=== PATIENT | female | born 2000 | race Hispanic/Latino ===

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

== ENCOUNTER 2021-09-21 14:09 | Emergency (ER) | payer BC, SELFPAY ==
--- OUTSIDE RECORDS SUMMARY | 2021-09-21 14:11 | XMS REPORT | Continuity of Care Document ---
:2000 Author Organization [facility] t Address [address] [place] [address] Dr. Elizabeth [address] [place] [id number] Care Team Providers Name Role Phone Unavailable Unavailable Unavailable Problems This patient has no known problems. Allergies, Adverse Reactions, Alerts This patient has no known allergies or adverse reactions. Medications This patient has no known medications. Procedures This patient has no known procedures. Results This patient has no known results.
[2021-09-21 14:41] LABS: Urine Blood Trace-intact (Negative); Urine Glucose Negative (Negative); Urine Protein Negative (Negative); Urine Specific Gravity >=1.030 (1.005-1.030)
[2021-09-21 14:49] LABS: Absolute Lymphocytes (CBC) 1.9 K/uL (0.7-4.9); Hematocrit 41.6 % (36.0-45.0); Lymphocytes % 28.3 % (15.3-44.8); MPV 8.6 fL (7.6-11.3); RBC Red Blood Cell Count 4.75 M/uL (3.86-4.86)
[2021-09-21 15:04] LABS: Albumin 3.9 g/dL (3.4-5.0); Bilirubin Total 0.5 mg/dL (0.2-1.0); Potassium 3.8 mmol/L (3.5-5.1); Protein, Total 8.2 g/dL (6.4-8.2)
--- NOTE | 2021-09-21 15:07 | RAD REPORT ---
EXAM DESCRIPTION: US - Abdomen Exam Limited - 09/21/2021 3:00 pm CLINICAL HISTORY: abdominal pain COMPARISON: No comparisons FINDINGS: No gallstones, measurable quantity of sludge or other significant findings within the gall bladder lumen. There is no wall thickening or pericholecystic fluid. No common duct stone or biliary tree dilatation identified. IMPRESSION: Normal gallbladder and biliary tree ultrasound.
[2021-09-21] MEDS ORDERED: LIDOCAINE VISCOUS 2% SOLN 15 ML UDC ONE (16:28)
[2021-09-21] MEDS ORDERED: MAGNES/ALUMIN/SIMET 30ML UCUP ONE (16:28)
--- NOTE | 2021-09-21 17:10 | EDPHYS ---
Physician Documentation [facility] Name: Claritza Zarate Age: 21 yrs Sex: Female : 2000 Arrival Date: 09/21/2021 Time: 14:12 Bed 11 Private MD: ED Physician Dada Vleasquez HPI: 09/21 14:22 This 21 yrs old Female presents to ER via Ambulatory with complaints of jmm Abdominal Pain, Weakness. 14:22 The patient presents with abdominal pain. Onset: The symptoms/episode began/occurred jmm gradually, 1 day(s) ago. The symptoms do not radiate. Associated signs and symptoms: Pertinent positives: nausea and vomiting. The symptoms are described as achy. 1-year-old female with no chronic medical conditions presents emerged department with complaints of epigastric abdominal pain beginning last night with some nausea and vomiting. Patient denies diarrhea. Denies infectious exposure, denies recent travel, denies recent antibiotic use. Patient denies any lower abdominal pain.. 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 - Social history:: Smoking status: Patient denies any tobacco usage or history of. ROS: 14:22 Constitutional: Negative for fever, chills, and weight loss, Cardiovascular: Negative jmm for chest pain, palpitations, and edema, Respiratory: Negative for shortness of breath, cough, wheezing, and pleuritic chest pain. 14:22 Abdomen/GI: Positive for abdominal pain. 14:22 All other systems are negative. Exam: 14:22 Constitutional: This is a well developed, well nourished patient who is awake, alert, jmm and in no acute distress. Head/Face: atraumatic. Eyes: EOMI, no conjunctival erythema appreciated ENT: Moist Mucus Membranes Neck: Trachea midline, Supple Chest/axilla: Normal chest wall appearance and motion. Cardiovascular: Regular rate and rhythm. No edema appreciated Respiratory: Normal respirations, no respiratory distress appreciated Abdomen/GI: Non distended, soft Back: Normal ROM Skin: General appearance color normal 14:22 Musculoskeletal/extremity: ROM: intact in all extremities. 14:22 Skin: Appearance: Color: normal in color. 14:22 Neuro: Orientation: is normal, Mentation: is normal, Memory: is normal. 14:22 Psych: Behavior/mood is pleasant, cooperative. Vital Signs: 14:16 BP 121 / 81; Pulse 106; Resp 17 S; Temp 98.4(TE); Pulse Ox 100% on R/A; Weight 61.23 kg jd3 (R); Height 4 ft. 11 in. (149.86 cm) (R); Pain 7/10; 14:16 Body Mass Index 27.27 (61.23 kg, 149.86 cm) jd3 MDM: 14:46 Patient medically screened. [facility] 17:07 Data reviewed: vital signs, nurses notes. [facility] 17:07 Counseling: I had a detailed discussion with the patient and/or guardian regarding: the [facility] historical points, exam findings, and any diagnostic results supporting the discharge/admit diagnosis, lab results, radiology results, the need for outpatient follow up, to return to the emergency department if symptoms worsen or persist or if there are any questions or concerns that arise at home. ED course: Patient states feeling much better after the GI cocktail. Patient has no lower abdominal pain and I do not currently suspect acute appendicitis. Patient advised follow GI for further evaluation otherwise given strict return precautions. Patient understood and agrees plan of care.. 09/21 14:22 Order name: CBC with Diff; Complete Time: 14:50 09/21 14:22 Order name: CMP; Complete Time: 15:06 09/21 14:22 Order name: Lipase; Complete Time: 15:06 09/21 14:41 Order name: Urine Dipstick-Ancillary; Complete Time: 14:44 EDTX 09/21 14:44 Order name: US Abdomen Limited; Complete Time: 15:16 [facility] 09/21 14:22 Order name: IV Saline Lock; Complete Time: 14:38 09/21 14:22 Order name: Labs collected and sent; Complete Time: 14:38 09/21 14:22 Order name: Urine Dipstick-Ancillary (obtain specimen); Complete Time: 16:03 09/21 14:22 Order name: Urine Test (obtain specimen); Complete Time: 16:03 iw Administered Medications: 16:28 Drug: GI Cocktail without - (Maalox Suspension 30 ml, Lidocaine Liquid 2 % 15 ww ml) Route: PO; Disposition: 18:23 Co-signature as Attending Physician, Dada Velasquez DO I was immediately available on-site ms3 in the Emergency Department for consultation in the care of the patient.. Disposition Summary: 09/21/21 17:10 Discharge Ordered Location: Home [facility] Condition: Stable jm Diagnosis - Epigastric pain [facility] Followup: jmm - With: Reyes Cazares MD - When: 2 - 3 days - Reason: Recheck today's complaints, Continuance of care, Re-evaluation by your physician Discharge Instructions: - Discharge Summary Sheet [facility] - Abdominal Pain, Adult [facility] Forms: - Medication Reconciliation Form [facility] - Thank You Letter [facility] - Antibiotic Education [facility] - Prescription Opioid Use [facility] Prescriptions: - Carafate 1 gram Oral Tablet - take 1 tablet by ORAL route 4 times per day take on an empty stomach, beginning jmm on waking and last dose at bedtime; 100 tablet; Refills: 0, Product Selection Permitted - Pepcid 20 mg Oral Tablet - take 1 tablet by ORAL route every 12 hours for 10 days; 20 tablet; Refills: 0, [facility] Product Selection Permitted - dicyclomine 20 mg Oral Tablet - take 1 tablet by ORAL route 4 times per day; 30 tablet; Refills: 0, Product [facility] Selection Permitted Signatures: Dispatcher [employer] EDJohn Bobo PA PA jmm Williams, Irene RN Tristan Arana RN RN Dada Burroughs DO DO ms3 Angela Kendrick RN RN ww
--- NOTE | 2021-09-21 17:10 | ER ---
Nurse's Notes [facility] Name: Claritza Zarate Age: 21 yrs Sex: Female : 2000 Arrival Date: 09/21/2021 Time: 14:12 Bed 11 Private MD: Diagnosis: Epigastric pain Presentation: 09/21 14:14 Chief complaint: Patient states: "last night i had a super sharp pain in my upper jd3 stomach. I felt like i needed to vomit. I had this burning sensation in my upper stomach.". Coronavirus screen: At this time, the client does not indicate any symptoms associated with coronavirus-19. Ebola Screen: No symptoms or risks identified at this time. Initial Sepsis Screen: Does the patient meet any 2 criteria? No. Patient's initial sepsis screen is negative. Does the patient have a suspected source of infection? No. Patient's initial sepsis screen is negative. Risk Assessment: Do you want to hurt yourself or someone else? Patient reports no desire to harm self or others. Onset of symptoms was September 21, 2021. 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 - Social history:: Smoking status: Patient denies any tobacco usage or history of. Screenin:24 Abuse screen: Denies threats or abuse. Denies injuries from another. Nutritional ww screening: No deficits noted. Tuberculosis screening: No symptoms or risk factors identified. Fall Risk None identified. Assessment: 17:24 General: Appears in no apparent distress. Pain: Complains of pain in abdomen. Neuro: ww Level of Consciousness is awake, alert, obeys commands, Oriented to person, place, time, situation, Moves all extremities. Gait is steady, Speech is normal. Cardiovascular: Patient's skin is warm and dry. Respiratory: Airway is patent Respiratory effort is even, unlabored, Respiratory pattern is regular, symmetrical. GI: Abdomen is non-distended, Abd is soft X 4 quads. Derm: Skin is intact, is healthy with good turgor. Vital Signs: 14:16 BP 121 / 81; Pulse 106; Resp 17 S; Temp 98.4(TE); Pulse Ox 100% on R/A; Weight 61.23 kg jd3 (R); Height 4 ft. 11 in. (149.86 cm) (R); Pain 7/10; 14:16 Body Mass Index 27.27 (61.23 kg, 149.86 cm) jd3 ED Course: 14:12 Patient arrived in ED. as 14:12 John Maradiaga PA is PHCP. elly 14:12 Dada Velasquez DO is Attending Physician. m 14:16 Triage completed. jd3 14:17 Arm band placed on. jd3 14:38 CBC with Diff Sent. mb7 14:38 CMP Sent. mb7 14:38 Lipase Sent. mb7 14:38 Inserted saline lock: 20 gauge in left antecubital area, using aseptic technique. Blood mb7 collected. 15:02 US Abdomen Limited In Process Unspecified. EDMS 17:09 Reyes Cazares MD is Referral Physician. [facility] 17:24 Patient has correct armband on for positive identification. Placed in gown. Bed in low ww position. Call light in reach. Side rails up X 1. 17:24 No provider procedures requiring assistance completed. IV discontinued, intact, ww bleeding controlled, No redness/swelling at site. Pressure dressing applied. Administered Medications: 16:28 Drug: GI Cocktail without - (Maalox Suspension 30 ml, Lidocaine Liquid 2 % 15 ww ml) Route: PO; Medication: 17:24 VIS not applicable for this client. ww Outcome: 17:10 Discharge ordered by . elly 17:24 Discharged to home ambulatory. ww 17:24 Condition: stable 17:24 Discharge instructions given to patient, family, Instructed on discharge instructions, follow up and referral plans. Demonstrated understanding of instructions, follow-up care, medications, Prescriptions given X 3. 17:26 Patient left the ED. ww Signatures: Dispatcher [employer] EDMS John Maradiaga PA PA jmm Martinez, Amelia as Davies, Jonathon, RN RN jd3 Radha, Ca mb7 Angela Kendrick, RN RN ww
[2021-09-21 17:37] VITALS: BP 121/81; TEMP 98.4; O2SAT 100
== END 2021-09-21 17:26 | disposition home or self-care (01) ==
LOC: ER 14:09
DX: R10.13 Epigastric pain (principal); R11.2 Nausea with vomiting, unspecified
CPT/HCPCS: 36415; 76705; 80053; 81003; 83690; 85025; 99284

== ENCOUNTER 2024-03-27 05:42 | Emergency (ER) | payer OTHER ==
[2024-03-27 06:39] LABS: Absolute Eosinophils 0.2 K/uL (0-0.5); Absolute Lymphocytes (CBC) 2.8 K/uL (0.7-4.9); Absolute Monocytes 0.6 K/uL (0.1-1.3); Absolute Neutrophil 6.4 K/uL (1.8-8.0); Basophils % 0.4 % (0-1.3); Eosinophils % 1.7 % (0-4.4); Hematocrit 38.5 % (36.0-45.0); Hemoglobin 13.2 g/dL (12.0-15.0); Lymphocytes % 27.7 % (15.3-44.8); MCH 29.4 pg (27.0-35.0); MCHC 34.2 g/dL (32.0-36.0); MCV 85.9 fL (80-100); MPV 8.7 fL (7.6-11.3); Monocytes % 6.4 % (3.3-12.3); Neutrophils % 63.8 % (41.7-73.7); Nucleated Red Blood Cells % 0.1 % (0-0); Platelets 369 thou/uL (152-406); RBC Red Blood Cell Count 4.48 M/uL (3.86-4.86); Red Cell Distribution Width 13.9 % (12.1-15.2)
[2024-03-27 06:46] LABS: Specific Gravity 1.027 (1.005-1.030)
[2024-03-27 06:49] LABS: Specific Gravity 1.027 (1.005-1.030); Urine Bacteria <20 /HPF (<20); Urine Bilirubin NEGATIVE (Negative); Urine Blood Negative (Negative); Urine Clarity Turbid (Clear); Urine Color Yellow (Yellow); Urine Culture Reflex Order NOT NEEDED; Urine Glucose NEGATIVE (Negative); Urine Ketones 2+ (Negative); Urine Microscopic Reflex YN ORDER UMIC; Urine Mucus 1+ /HPF (None Seen); Urine Nitrite NEGATIVE (Negative); Urine Protein TRACE (Negative); Urine RBC <5 /HPF (None Seen); Urine Urobilinogen Normal (Normal); Urine WBC <5 /HPF (<5)
[2024-03-27 06:58] LABS: Albumin 3.9 g/dL (3.4-5.0); Anion Gap 9.6 mEq/L (5.0-15.0); Bilirubin Total 0.6 mg/dL (0.2-1.0); Globulin 4.1 g/dL (2.3-3.5); Potassium 3.6 mEq/L (3.5-5.1)
--- NOTE | 2024-03-27 07:45 | RAD REPORT ---
EXAM: Right upper quadrant ultrasound. CLINICAL HISTORY: Right upper quadrant pain COMPARISON: None. FINDINGS: Gallbladder: Normal. Bile ducts: No intrahepatic or extrahepatic biliary dilatation. Common bile duct measures 4 mm. Limited imaging of the liver shows no concerning finding. IMPRESSION: Unremarkable exam.
--- NOTE | 2024-03-27 07:59 | EDPHYS ---
Physician Documentation [facility] Name: Claritza Zarate Age: 23 yrs Sex: Female : 2000 Arrival Date: 03/27/2024 Time: 05:42 Bed 6 Private MD: ED Physician Son Candelaria HPI: 03/27 07:04 This 23 yrs old Female presents to ER via Ambulatory with complaints of rt Abdominal Pain. 07:04 Patient presents to the ED with right upper quadrant pain with nausea, vomiting, rt diarrhea starting overnight. Patient states the symptoms wax and wane, do seem to be improving but not completely resolved. Has had similar symptoms previously. Denies other acute complaints at this time, symptoms are moderate in severity, no other aggravating alleviating factors.. Historical: - Allergies: 06:15 No Known Allergies; ha1 06:15 No Known Allergies; mt4 - Home Meds: 06:15 None [Active]; mt4 - PMHx: 06:15 None; ha1 - PSHx: 06:15 section; ha1 06:15 section; mt4 - Immunization history:: Adult Immunizations up to date, Adult Immunizations up to date. - Infectious Disease History:: Denies. Denies. - Social history:: Smoking status: Patient denies any tobacco usage or history of. Smoking status: Patient denies any tobacco usage or history of. - Family history:: not pertinent. ROS: 07:04 Constitutional: Negative for fever, chills, and weight loss, Cardiovascular: Negative rt for chest pain, palpitations, and edema, Respiratory: Negative for shortness of breath, cough, wheezing, and pleuritic chest pain, MS/Extremity: Negative for injury and deformity, Skin: Negative for injury, rash, and discoloration, Neuro: Negative for headache, weakness, numbness, tingling, and seizure, 07:04 Abdomen/GI: Positive for abdominal pain, nausea, vomiting, and diarrhea, Exam: 07:04 Constitutional: This is a well developed, well nourished patient who is awake, alert, rt and in no acute distress. Head/Face: Normocephalic, atraumatic. Chest/axilla: Normal chest wall appearance and motion. Nontender with no deformity. No lesions are appreciated. Cardiovascular: Regular rate and rhythm with a normal S1 and S2. No gallops, murmurs, or rubs. Normal PMI, no JVD. No pulse deficits. Respiratory: Lungs have equal breath sounds bilaterally, clear to auscultation and percussion. No rales, rhonchi or wheezes noted. No increased work of breathing, no retractions or nasal flaring. Skin: Warm, dry with normal turgor. Normal color with no rashes, no lesions, and no evidence of cellulitis. MS/ Extremity: Pulses equal, no cyanosis. Neurovascular intact. Full, normal range of motion. Neuro: Awake and alert, GCS 15, oriented to person, place, time, and situation. Cranial nerves II-XII grossly intact. Motor strength 5/5 in all extremities. Sensory grossly intact. Cerebellar exam normal. Normal gait. 07:04 Abdomen/GI: Tenderness to the right upper quadrant with no guarding, rebound, distention, Vital Signs: 05:47 BP 133 / 92; Pulse 95; Resp 18 S; Temp 97.6(T); Pulse Ox 100% on R/A; Weight 72.57 kg; ha1 Height 4 ft. 11 in. ; Pain 8/10; 06:15 BP 111 / 72; Pulse 81; Resp 16; Pulse Ox 99% on R/A; Pain 7/10; mt4 07:12 BP 110 / 69; Pulse 94; Resp 18; Pulse Ox 100% on R/A; ap3 08:15 BP 112 / 62; Pulse 90; Resp 18 S; Pulse Ox 98% on R/A; kc6 05:47 Body Mass Index 32.32 (72.57 kg, 149.86 cm) ha1 05:47 Pain Scale: Adult ha1 06:15 Pain Scale: Adult mt4 Sweta Coma Score: 06:15 Eye Response: spontaneous(4). Motor Response: obeys commands(6). Verbal Response: mt4 oriented(5). Total: 15. MDM: 06:03 Medical Screening Exam initiated rt 07:56 Differential Diagnosis Cholecystitis, cholelithiasis, gastritis, ulcers, chronic rn abdominal pain. Data reviewed: vital signs, nurses notes, lab test result(s), radiologic studies, ultrasound, and as a result, I will discharge patient. Counseling: I had a detailed discussion with the patient and/or guardian regarding the historical points, exam findings, and any diagnostic results supporting the discharge/admit diagnosis, lab results, radiology results, the need for outpatient follow up, to return to the emergency department if symptoms worsen or persist or if there are any questions or concerns that arise at home. Special discussion: Based on the patient's Hx, exam, and Dx evaluation, there is no indication for emergent surgery or inpatient Tx. It is understood by the patient/guardian that if the Sx's persist or worsen they need to return immediately for re-evaluation. I discussed with the patient/guardian in detail that at this point there is no indication for admission to the hospital. It is understood, however, that if the symptoms persist or worsen the patient needs to return immediately for re-evaluation. Based on the history and exam findings, there is no indication for further emergent testing or inpatient evaluation. I discussed with the patient/guardian the need to see the pl sql developer for further evaluation of the symptoms. ED course: No acute findings on workup. Signed out to me by Dr. Rome, plan was to DC home if workup negative. Gallbladder ultrasound negative for acute pathology. Reassessment shows patient with 2 years of intermittent abdominal pain, mainly epigastric, has not been on antacids and states the numbing medicine that she gets here usually makes it go away. Most likely gastritis or early ulceration. No signs of bleeding. Will send home with prescription for antacid and GI follow-up. 03/27 06:11 Order name: CBC with Diff; Complete Time: 06:58 rt 03/27 06:11 Order name: CMP; Complete Time: 06:58 rt 03/27 06:11 Order name: Lipase; Complete Time: 06:58 rt 03/27 06:11 Order name: Test, Urine; Complete Time: 06:58 rt 03/27 06:11 Order name: Urinalysis w/ reflexes; Complete Time: 06:58 rt 03/27 06:11 Order name: Abdomen Limited US; Complete Time: 07:51 rt 03/27 06:11 Order name: IV Saline Lock; Complete Time: 06:19 rt 03/27 06:11 Order name: Labs collected and sent; Complete Time: 06:29 rt Administered Medications: No medications were administered Disposition Summary: 03/27/24 07:58 Discharge Ordered Notes: Location: Home rn Problem: an ongoing problem rn Symptoms: have improved rn Condition: Stable rn Diagnosis - Abdominal pain, unspecified rn - Acute gastritis without bleeding rn Followup: rn - With: Reyes Cazares MD - When: As needed - Reason: Recheck today's complaints, Re-evaluation by your physician Discharge Instructions: - Discharge Summary Sheet rn - Abdominal Pain, Adult rn - Gastritis, Adult rn Forms: - Medication Reconciliation Form rn - 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 EDMS EDMS
--- NOTE | 2024-03-27 07:59 | ER ---
Nurse's Notes [facility] Name: Claritza Zarate Age: 23 yrs Sex: Female : 2000 Arrival Date: 03/27/2024 Time: 05:42 Bed 6 Private MD: Diagnosis: Abdominal pain, unspecified;Acute gastritis without bleeding Presentation: 03/27 05:47 Chief complaint: Patient states: RIGHT UPPER QUADRANT ABDOMINAL PAIN , DIARRHEA. 1 05:47 Coronavirus screen: Vaccine status: Patient reports being unvaccinated. Ebola Screen: ha1 No symptoms or risks identified at this time. Initial Sepsis Screen: Does the patient meet any 2 criteria? No. Patient's initial sepsis screen is negative. Does the patient have a suspected source of infection? No. Patient's initial sepsis screen is negative. Risk Assessment: Do you want to hurt yourself or someone else? Patient reports no desire to harm self or others. Onset of symptoms was March 27, 2024. 05:47 Method Of Arrival: Ambulatory [facility] 05:47 Acuity: GRACE 3 ha1 Triage Assessment: 05:47 General: Appears uncomfortable, Behavior is cooperative. Pain: Complains of pain in ha1 right upper quadrant Pain does not radiate. Pain currently is 8 out of 10 on a pain scale. Neuro: Level of Consciousness is awake, alert, obeys commands, Oriented to person, place, time, situation. Cardiovascular: Capillary refill < 3 seconds Patient's skin is warm and dry. Respiratory: Airway is patent Respiratory effort is even, unlabored, Respiratory pattern is regular, symmetrical. GI: Abdomen is round non-distended, obese, Reports upper abdominal pain, diarrhea, nausea. Historical: - Allergies: 06:15 No Known Allergies; ha1 06:15 No Known Allergies; mt4 - Home Meds: 06:15 None [Active]; mt4 - PMHx: 06:15 None; ha1 - PSHx: 06:15 section; 1 06:15 section; mt4 - Immunization history:: Adult Immunizations up to date, Adult Immunizations up to date. - Infectious Disease History:: Denies. Denies. - Social history:: Smoking status: Patient denies any tobacco usage or history of. Smoking status: Patient denies any tobacco usage or history of. - Family history:: not pertinent. Screenin:15 [facility] ED Fall Risk Assessment (Adult) History of falling in the last 3 months, mt4 including since admission No falls in past 3 months (0 pts) Confusion or Disorientation No (0 pts) Intoxicated or Sedated Yes (3 pts) Impaired Gait Yes (1 pt) Mobility Assist Device Used No (0 pt) Altered Elimination No (0 pt) Score/Fall Risk Level 0 - 2 = Low Risk. Abuse screen: Denies injuries from another. Nutritional screening: No deficits noted. Tuberculosis screening: No symptoms or risk factors identified. Exposure risk/Travel Screening: None identified. Assessment: 06:07 General: Appears in no apparent distress. comfortable, Behavior is calm, cooperative, mt4 appropriate for age. Pain: Complains of pain in abdomen Pain currently is 7 out of 10 on a pain scale. Quality of pain is described as burning, aching, throbbing, Pain began 2-3 days ago. Is continuous. 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 Gait is steady, Speech is normal, Facial symmetry appears normal. Cardiovascular: Capillary refill < 3 seconds. Respiratory: Airway is patent Respiratory effort is even, unlabored, Respiratory pattern is regular, symmetrical. GI: Abdomen is non-distended, Bowel sounds present X 4 quads. Abd is soft and non tender in right upper quadrant, left upper quadrant and right lower quadrant. : Denies burning with urination. Derm: Skin is intact, Skin is dry, Skin is pink, warm \T\ dry. Skin temperature is warm. Musculoskeletal: Capillary refill < 3 seconds, Range of motion: intact in all extremities. 07:12 Reassessment: Patient and/or family updated on plan of care and expected duration. Pain ap3 level reassessed. Patient is alert, oriented x 3, equal unlabored respirations, skin warm/dry/pink. General: Appears. Pain: Complains of pain in abdomen Pain currently is 8 out of 10 on a pain scale. Neuro: Level of Consciousness is awake, alert, obeys commands, Oriented to person, place, time, situation. Cardiovascular: Patient's skin is warm and dry. Respiratory: Airway is patent Respiratory effort is even, unlabored, Respiratory pattern is regular, symmetrical. GI: Reports diarrhea. 08:15 Reassessment: Patient appears in no apparent distress at this time. No changes from kc6 previously documented assessment. Patient and/or family updated on plan of care and expected duration. Pain level reassessed. Patient is alert, oriented x 3, equal unlabored respirations, skin warm/dry/pink. Vital Signs: 05:47 BP 133 / 92; Pulse 95; Resp 18 S; Temp 97.6(T); Pulse Ox 100% on R/A; Weight 72.57 kg; ha1 Height 4 ft. 11 in. ; Pain 8/10; 06:15 BP 111 / 72; Pulse 81; Resp 16; Pulse Ox 99% on R/A; Pain 7/10; mt4 07:12 BP 110 / 69; Pulse 94; Resp 18; Pulse Ox 100% on R/A; ap3 08:15 BP 112 / 62; Pulse 90; Resp 18 S; Pulse Ox 98% on R/A; kc6 05:47 Body Mass Index 32.32 (72.57 kg, 149.86 cm) ha1 05:47 Pain Scale: Adult ha1 06:15 Pain Scale: Adult mt4 Sweta Coma Score: 06:15 Eye Response: spontaneous(4). Motor Response: obeys commands(6). Verbal Response: mt4 oriented(5). Total: 15. ED Course: 05:45 Patient arrived in ED. jj6 05:45 Memo Rome MD is Attending Physician. rt 05:57 Eusebia Teresa, RN is Primary Nurse. mt4 06:15 Triage completed. ha1 06:15 No apparent distress. Resting quietly. Awaiting lab results. mt4 06:15 Patient has correct armband on for positive identification. Bed in low position. Call mt4 light in reach. Side rails up X 1. Provided Education on: labs and meds . Client placed on continuous cardiac and pulse oximetry monitoring. NIBP monitoring applied. Door closed. Lights dimmed. Warm blanket given. Diet tray ordered. Verbal reassurance given. Assisted to bathroom. 06:15 No provider procedures requiring assistance completed. Inserted saline lock: 20 gauge mt4 in right antecubital area, using aseptic technique. Blood collected. Flushed with 10 mL NS. 07:00 Arm band placed on. kc6 07:06 Abdomen Limited US In Process Unspecified. EDMS 07:37 Attending Physician role handed off by Memo Rome MD rn 07:37 Son Candelaria MD is Attending Physician. rn 07:58 Reyes Cazares MD is Referral Physician. rn 08:22 IV discontinued, intact, bleeding controlled, No redness/swelling at site. Pressure kc6 dressing applied. Administered Medications: No medications were administered Medication: 06:15 VIS not applicable for this client. mt4 Outcome: :58 Discharge ordered by MD. rn 08:22 Discharged to home ambulatory, with significant other, kc6 08:22 Condition: good 08:22 Discharge instructions given to patient, significant other, Instructed on discharge instructions, follow up and referral plans. medication usage, Demonstrated understanding of instructions, follow-up care, medications, Prescriptions given X 1, 08:22 Patient left the ED. kc6 Signatures: Dispatcher [employer] [facility] Son Candelaria MD MD rn Prokisch, Amanda, RN RN ap3 Maryann Kirkland jj6 Hoda Kauffman RN RN ha1 Demetrice Austin RN RN kc6 Memo Rome MD MD rt Eusebia Teresa RN RN mt4
[2024-03-27 12:15] VITALS: TEMP 97.6
[2024-03-27 12:19] VITALS: BP 112/62; O2SAT 98
== END 2024-03-27 08:22 | disposition home or self-care (01) ==
LOC: ER 05:42
DX: K29.00 Acute gastritis without bleeding (principal)
CPT/HCPCS: 36415; 76705; 80053; 81001; 81025; 83690; 85025; 99284